=== PATIENT | male | born 1960 | race Caucasian/White ===

== ENCOUNTER → 2017-01-28 | Outpatient (CLI) | payer OTHER ==
[~2017-01-28] MED LIST: ALLERGY25 M1 PO; AMBIEN10 MG PO; APRESOLINE25 MG PO; ASPIRIN EC81 MG PO; ATIVAN 0.5MG0.5 MG PO; AVAPRO300 MG PO; CARDIZEM CD (T120 MG PO; GLUCOPHAGE1000 MG PO; INSPRA25 MG PO; LEVOTHROID (SY88 MCG PO; LIPITOR40 MG PO; LOPRESSOR50 MG PO; NORVASC10 MG PO; PRILOSEC20 MG PO; THERAGRAN-M1 TAB PO; ZOCOR20 M1 PO
== END | disposition disaster alternative care site (69) ==
LOC: GCAR 01-26 11:00
DX: H53.8 Other visual disturbances (principal); I65.23 Occlusion and stenosis of bilateral carotid arteries

== ENCOUNTER → 2017-05-06 | Outpatient (CLI) | payer OTHER ==
[2017-05-06 10:23] LABS: BLOOD UREA NITROGEN 11 mg/dL (6-24); CHLORIDE 95 mMol/L (96-110); CO2 27 mMol/L (22-32); CREATININE 0.7 mg/dL (0.6-1.3); SODIUM 130 mMol/L (135-145)
== END | disposition disaster alternative care site (69) ==
LOC: LNHI 10:08
PROVIDERS: Internal Medicine Interventional Cardiology
DX: I10 Essential (primary) hypertension (principal)